=== PATIENT | female | born 1980 | race Hispanic/Latino ===

== ENCOUNTER → 2019-04-21 | Outpatient (CLI) | payer OTHER ==
[~2019-04-21] MED LIST: LIDOCAINE HCL 1% LOCAL INJ 20 ML VIAL ONE
--- NOTE | 2019-04-21 16:18 | Diagnostic Imaging Report ---
Exam: Right thyroid nodule biopsy History: Palpable right thyroid nodule. Comparison: Outside thyroid images from [facility] dated 03/25/2019 Findings: Complex mixed cystic and solid right thyroid nodule measures 2.4 x 1.6 x 1.8 cm present within the midpole of the right thyroid lobe. A total of 6 ultrasound-guided FNA's were performed. Specimens were deemed adequate by the pathologist. Patient tolerated the procedure well. Impression: Successful ultrasound-guided FNA of a complex right thyroid nodule. Signed by: Dr. Nash Wheeler DO on 04/21/2019 4:15 PM
== END ==
LOC: US 11:40
PROVIDERS: ATTEND Otolaryngology
DX: E04.2 Nontoxic multinodular goiter (principal)
CPT/HCPCS: 10005; 88112; 88172; 88173; J2001